=== PATIENT | female | born 1985 | race Two or more races ===

== ENCOUNTER → 2016-11-09 | Day surgery (SDC) | payer OTHER ==
[~2016-11-09] VITALS: Ht 172.7 cm; Wt 127.0 kg
[~2016-11-09] MED LIST: BUPIVACAINE HCL 0.25% 30 ML VIAL As Ordered ONE; DEPO150I IM; LISI20TA PO; LR 1,000 ML IV SCH; MEPERIDINE INJ 25 MG/ML VIAL (J2175) IV PRN; METOCLOPRAMIDE INJ 10MG/2ML VIAL (J2765) IV PRN; MIDAZOLAM INJ 2 MG/2 ML VIAL (J2250) As Ordered ONE; NAPR500T3 PO; ONDANSETRON 4MG/2ML VIAL (J2405) As Ordered ONE; ONDANSETRON 4MG/2ML VIAL (J2405) IV PRN; PERCOCET 5MG/325MG TAB PO PRN; PROAAER10 INH; PROMETHAZINE INJ 25 MG/ML VIAL (J2550) As Ordered ONE; PROMETHAZINE INJ 25 MG/ML VIAL (J2550) IV ONE; TYLE325T5 PO; fentaNYL 100 MCG/2 ML INJECTION (J3010) IV PRN; fentaNYL 250 MCG/5 ML INJECTION (J3010) As Ordered ONE
[2016-11-09 06:59] LABS: MEAN CORPUSCULAR HEMOGLOBIN 31.7 pg (27.0-33.0); MEAN CORPUSCULAR VOLUME 93.3 fl (80.0-96.0); RED CELL DISTRIBUTION WIDTH 12.9 % (11.5-14.5); WHITE BLOOD COUNT 7.6 K/mm3 (4.0-10.0)
[2016-11-09 07:10] LABS: CONTROL LINE HCG INT CTR LINE PRESENT
[2016-11-09 07:17] LABS: ANION GAP 6 MEQ/L (8-16); BLOOD UREA NITROGEN 15 MG/DL (7-18); CALCIUM LEVEL 8.9 MG/DL (8.5-10.1); CARBON DIOXIDE LEVEL 26 MEQ/L (21-32); CHLORIDE LEVEL 111 MEQ/L (98-107); CREATININE FOR GFR 0.78 MG/DL (0.55-1.02); GLOMERULAR FILTRATION RATE > 60.0 (>60); GLUCOSE, FASTING 108 MG/DL (70-105); POTASSIUM SERUM 4.4 MEQ/L (3.5-5.1); SODIUM LEVEL 143 MEQ/L (136-145)
[2016-11-09 13:00] VITALS: BP 119/78
== END | disposition home or self-care (01) ==
LOC: M SDC 06:28
PROVIDERS: ATTEND Obstetrics & Gynecology
DX: N93.9 Abnormal uterine and vaginal bleeding, unspecified (principal); R10.2 Pelvic and perineal pain; G89.29 Other chronic pain; I10 Essential (primary) hypertension; J45.909 Unspecified asthma, uncomplicated; T88.59XD Other complications of anesthesia, subsequent encounter; E04.9 Nontoxic goiter, unspecified; R29.898 Other symptoms and signs involving the musculoskeletal system; F17.210 Nicotine dependence, cigarettes, uncomplicated; Z91.09 Other allergy status, other than to drugs and biological substances; Z91.018 Allergy to other foods; Z79.899 Other long term (current) drug therapy; Z79.3 Long term (current) use of hormonal contraceptives; Z86.59 Personal history of other mental and behavioral disorders
CPT/HCPCS: 36415; 49320; 58558; 80048; 84703; 85027; 86850; 86900; 86901; 88305; J2250; J2405; J3010

== ENCOUNTER → 2016-12-22 | Outpatient (CLI) | payer OTHER ==
[~2016-12-22] MED LIST changes: -BUPIVACAINE HCL 0.25% 30 ML VIAL As Ordered ONE; -LR 1,000 ML IV SCH; -MEPERIDINE INJ 25 MG/ML VIAL (J2175) IV PRN; -METOCLOPRAMIDE INJ 10MG/2ML VIAL (J2765) IV PRN; -MIDAZOLAM INJ 2 MG/2 ML VIAL (J2250) As Ordered ONE; -ONDANSETRON 4MG/2ML VIAL (J2405) As Ordered ONE; -ONDANSETRON 4MG/2ML VIAL (J2405) IV PRN; -PERCOCET 5MG/325MG TAB PO PRN; -PROMETHAZINE INJ 25 MG/ML VIAL (J2550) As Ordered ONE; -PROMETHAZINE INJ 25 MG/ML VIAL (J2550) IV ONE; -fentaNYL 100 MCG/2 ML INJECTION (J3010) IV PRN; -fentaNYL 250 MCG/5 ML INJECTION (J3010) As Ordered ONE
--- NOTE | 2016-12-22 17:39 | REP ---
REASON: Back pain. COMPARISON: 06/10/2007. FINDINGS: Five views of the lumbosacral spine show no acute fracture, dislocation or subluxation. The intervertebral disc spaces are symmetric and well maintained. There is no spondylolysis or spondylolisthesis. The pedicles are intact bilaterally and there is no destructive osseous lesion. There are mild chronic changes seen involving the imaged portion of the lower thoracic spine but only on the lateral view as it was only on the lateral dose that those vertebral bodies were included in the exam. IMPRESSION: Unremarkable lumbosacral spine series. Signed by Aditya Atkins DO 12/22/2016 05:47 P
--- NOTE | 2016-12-22 17:48 | REP ---
REASON: Pain. COMPARISON: None. FINDINGS: No acute fracture or destructive osseous lesion. Signed by Aditya Atkins DO 12/22/2016 06:58 P
== END ==
LOC: M LRY 14:52
PROVIDERS: ATTEND Nurse Practitioner Family
DX: M54.42 Lumbago with sciatica, left side (principal)
CPT/HCPCS: 72110; 72220; 96372; G0463; J1885

== ENCOUNTER → 2016-12-22 | Outpatient (CLI) | payer OTHER | LOC: M LRY 15:07 | PROVIDERS: ATTEND Nurse Practitioner Family | DX: M54.42 Lumbago with sciatica, left side (principal) ==

== ENCOUNTER 2019-01-02 13:32 | Observation (INO) | payer OTHER ==
[~2019-01-02] VITALS: Ht 172.7 cm; Wt 133.0 kg
[2019-01-02] MEDS: NS 1,000 ML IV SCH ×2 (00:30→18:39)
[~2019-01-02 13:32] MED LIST changes: -LISI20TA PO; +LISI20TA18 PO; +NAPR-885 PO; -NAPR500T3 PO
[2019-01-02 14:19] LABS: BASO % 0.4 % (0.0-1.0); EOS # 0.1 10^3/uL (0.0-0.50); EOS % 1.1 % (0.0-3.0); HEMOGLOBIN 15.3 g/dl (12.0-15.5); LYMPH # 2.4 10^3/uL (1.5-4.5); LYMPH % 22.4 % (24.0-44.0); MEAN CORPUSCULAR HEMOGLOBIN 31.6 pg (27.0-33.0); MEAN CORPUSCULAR HGB CONC 34.8 g/dl (32.0-36.5); MEAN CORPUSCULAR VOLUME 90.9 fl (80.0-96.0); MONO # 0.5 10^3/uL (0.0-0.8); MONO % 4.2 % (0.0-5.0); NEUTROPHILS # 7.8 10^3/uL (1.8-7.7); NEUTROPHILS % 71.6 % (36.0-66.0); PLATELET COUNT, AUTOMATED 260 10^3/uL (150-450); RED BLOOD COUNT 4.84 10^6/uL (4.00-5.40); WHITE BLOOD COUNT 10.9 10^3/uL (4.0-10.0)
[2019-01-02 14:45] LABS: ALBUMIN 4.1 GM/DL (3.2-5.2); ALT/SGPT 35 U/L (12-78); BILIRUBIN,DIRECT 0.1 MG/DL (0.0-0.2); BILIRUBIN,TOTAL 0.5 MG/DL (0.2-1.0); BLOOD UREA NITROGEN 18 MG/DL (7-18); CALCIUM LEVEL 9.4 MG/DL (8.5-10.1); CARBON DIOXIDE LEVEL 27 MEQ/L (21-32); CHLORIDE LEVEL 107 MEQ/L (98-107); CREATININE FOR GFR 0.88 MG/DL (0.55-1.30); GLOMERULAR FILTRATION RATE > 60.0 (>60); GLUCOSE, FASTING 109 MG/DL (70-100); LIPASE 2150 U/L (73-393); SODIUM LEVEL 140 MEQ/L (136-145); TOTAL PROTEIN 7.7 GM/DL (6.4-8.2)
[2019-01-02 14:50] LABS: HCG, SERUM QUALITATIVE NEGATIVE (NEGATIVE)
[2019-01-02] MEDS ORDERED: ONDANSETRON 4MG/2ML VIAL (J2405) IV ONE (15:15)
[2019-01-02] MEDS ORDERED: MORPHINE 4 MG/ML 1ML VIAL/SYRINGE (J2270) IV ONE (15:15)
[2019-01-02] MEDS ORDERED: ISOVUE-370 76% 100ML VIAL (Q9967) As Ordered ONE (15:19)
[2019-01-02] MEDS ORDERED: NS 1,000 ML IV ONE (16:15)
[2019-01-02] MEDS ORDERED: IPRATROPIUM 0.5MG/ALBUTEROL 2.5MG INH SOL UD 3ML (DUONEB)(J7620) NEB PRN (17:15)
--- NOTE | 2019-01-02 17:35 | HPEPDOC ---
General Date of Admission 01/02/19 Date of Service: Jan 02, 2019 Chief Complaint The patient is a 33-year-old female admitted with a reason for visit of Abd Pain. History of Present Illness 33-year-old female with past medical history of hypertension, asthma, and morbid obesity presents to the ER with a chief complaint of abdominal pain. The patient states that her pain started yesterday evening. She describes it as epigastric in origin radiating to the sides in a belt-like distribution. She states that it was stabbing in quality, and 8 out of 10 in intensity. Of note, the patient endorses that she has been eating fried chicken daily for the last 3 weeks at work ([employer]). She denies any history of heavy alcohol use, new medications. She also notes a history of gallbladder removal 11 years ago due to recurrent pancreatitis. She states that she has been comfort eating as her grandmother was recently diagnosed with cancer. She denies any complaints of fevers, chills, chest pain, palpitations, or any vomiting/diarrhea. In the ER, the patient was noted to have an elevated lipase level. Liver function tests were noted to be within normal limits. A CT scan of the abdomen/pelvis is pending at this time. She will be admitted under observation status to the hospitalist service for further evaluation and management. Home Medications Scheduled Lisinopril/Hydrochlorothiazide (Lisinopril-Hctz 20-12.5 mg Tab) 1 Tab Tab, 1 TAB PO QAM, (Reported) Medroxyprogesterone Acetate (Depo-Provera) 150 Mg/Ml Inj, 150 MG IM Q3M, (Reported) Naproxen (Naproxen) 500 Mg Tab, 500 MG PO BID, (Reported) Scheduled PRN Acetaminophen (Tylenol) 325 Mg Tab, 325 MG PO QAM PRN for PAIN, (Reported) Albuterol Sulfate (Proair Hfa) 108 Mcg/Act Aer, 2 PUFF INH QID PRN for WHEEZING, (Reported) Allergies Coded Allergies: Cat Dander (Verified Allergy, Unknown, 01/02/19) banana (Verified Adverse Reaction, Intermediate, GI UPSET RAW, 01/02/19) Past Medical History Medical History As noted in HPI. Surgical History Laparoscopic bilateral ovarian cystectomies for dermoid cysts, laparoscopic cholecystectomy in 2007, open appendectomy at the age of 7 Social History * Smoker: current smoker (patient sees that she has smoked 1 pack per day of tobacco for the last 11 years.) Alcohol: occationally Drugs: denies Review of Systems Other systems 10 point review of systems negative unless otherwise specified in HPI. Physical Examination General Exam: Positive: Alert, Cooperative, No Acute Distress, Other (morbidly obese appearing) ENT Exam: Positive: Atraumatic, Mucous membr. moist/pink Neck Exam: Negative: JVD Chest Exam: Positive: Clear to auscultation, Normal air movement Heart Exam: Positive: Rate Normal, Normal S1, Normal S2 Abdomen Exam: Positive: Soft, Tenderness (mild tenderness to deep palpation in the epigastric/supraumbilical region extending in a belt-like distribution around the torso.) Extremity Exam: Negative: Tenderness, Swelling Neuro Exam: Positive: Normal Speech Psych Exam: Positive: Mental status NL, Mood NL, Oriented x 3 Vital Signs Vital Signs Date Time Temp Pulse Resp B/P (MAP) Pulse Ox O2 Delivery O2 Flow Rate FiO2 01/02/19 16:59 77 17 154/87 (109) 97 Room Air 01/02/19 13:32 98.1 Laboratory Data Labs 24H Laboratory Tests 2 01/02/19 14:04: Immature Granulocyte % (Auto) 0.3, White Blood Count 10.9H, Red Blood Count 4.84, Hemoglobin 15.3, Hematocrit 44.0, Mean Corpuscular Volume 90.9, Mean Corpuscular Hemoglobin 31.6, Mean Corpuscular Hemoglobin Concent 34.8, Red Cell Distribution Width 12.4, Platelet Count 260, Neutrophils (%) (Auto) 71.6H, Lymphocytes (%) (Auto) 22.4L, Monocytes (%) (Auto) 4.2, Eosinophils (%) (Auto) 1.1, Basophils (%) (Auto) 0.4, Neutrophils # (Auto) 7.8H, Lymphocytes # (Auto) 2.4, Monocytes # (Auto) 0.5, Eosinophils # (Auto) 0.1, Basophils # (Auto) 0.0, Nucleated Red Blood Cells % (auto) 0.0, Anion Gap 6L, Glomerular Filtration Rate > 60.0, Calcium Level 9.4, Aspartate Amino Transf (AST/SGOT) 18, Alanine Aminotransferase (ALT/SGPT) 35, Alkaline Phosphatase 68, Total Bilirubin 0.5, Direct Bilirubin 0.1, Total Protein 7.7, Albumin 4.1, Albumin/Globulin Ratio 1.14, Lipase 2150H, Human Chorionic Gonadotropin, Qual NEGATIVE 01/02/19 15:10: Urine Color YELLOW, Urine Appearance CLEAR, Urine pH 5.0, Urine Specific [place] 1.026, Urine Protein NEGATIVE, Urine Glucose (UA) NEGATIVE, Urine Ketones TRACEH, Urine Blood NEGATIVE, Urine Nitrite NEGATIVE, Urine Bilirubin NEGATIVE, Urine Urobilinogen 0.2, Urine Leukocyte Esterase NEGATIVE, Urine WBC (Auto) 2, Urine RBC (Auto) 4H, Urine Hyaline Casts (Auto) 0, Urine Bacteria (Auto) NEGATIVE, Urine Squamous Epithelial Cells 2, Urine Mucus (Auto) SMALL, Urine Sperm (Auto) CBC/BMP Laboratory Tests 01/02/19 14:04 Red Blood Count 4.84, Mean Corpuscular Volume 90.9, Mean Corpuscular Hemoglobin 31.6, Mean Corpuscular Hemoglobin Concent 34.8, Red Cell Distribution Width 12.4, Neutrophils (%) (Auto) 71.6 H, Lymphocytes (%) (Auto) 22.4 L, Monocytes (%) (Auto) 4.2, Eosinophils (%) (Auto) 1.1, Basophils (%) (Auto) 0.4, Neutrophil s # (Auto) 7.8 H, Lymphocytes # (Auto) 2.4, Monocytes # (Auto) 0.5, Eosinophils # (Auto) 0.1, Basophils # (Auto) 0.0 Plan / VTE VTE Prophylaxis Ordered?: Yes Plan Plan Pancreatitis 2/[address] Abd/Pel pending, RUQ U/S ordered for the AM We will keep the patient NPO IVF Hydration ordered Analgesic therapy ordered Lipid panel ordered Patient counseled at length regarding dietary discretion, and avoidance of high fat/high cholesterol diet. We will continue to monitor the patient on MedSurg History of hypertension We will resume the patient's by mouth medications in the a.m. Remote history of asthma Albuterol when necessary ordered Morbid obesity Complicating medical care DVT prophylaxis Lovenox subcutaneous KENAN GUERRERO MD Jan 02, 2019 17:35
[2019-01-02] MEDS ORDERED: ZEST1TAB2 PO (17:49)
[2019-01-02] MEDS ORDERED: MIDOTAB PO (17:51)
--- NOTE | 2019-01-02 17:56 | REP ---
HISTORY: Abdominal pain. COMPARISON: None. CONTRAST: 100 mL [id number]. There is abnormal fatty infiltration in the left anterior pararenal space. There is thickening of the left lateroconal fascia. There is mild thickening of Zuckerkandl's fascia on the left. There is no free air in the abdomen. The liver, spleen, adrenal glands and kidneys are within normal limits. The abdominal aorta and paraaortic regions are within normal limits. The bowel loops are within normal limits. There is mild fatty infiltration adjacent to the posterior wall of the descending colon secondary to the inflammatory process arising from the pancreas. There is no intestinal obstruction. CT PELVIS: There is a small amount of free pelvic fluid. There is no free air. The bowel loops are unremarkable. There is no evidence of a pelvic mass or adenopathy. Bone window technique throughout the exam shows the osseous structures to be within normal limits. The lung bases are clear with the exception of minimal subsegmental atelectatic changes seen bilaterally. IMPRESSION: Pancreatitis and related findings as described above. Electronically Signed by Aditya Atkins DO 01/03/2019 12:36 P
--- NOTE | 2019-01-02 18:31 | REPVR ---
EXAM: US Abdomen Limited, Right Upper Quadrant EXAM DATE/TIME: 01/02/2019 6:08 PM CLINICAL HISTORY: 33 years old, female; Abdominal pain; Acute; Prior surgery; Surgery date: 6+ months; Surgery type: Cholecystectomy; Additional info: Pancreatitis, evaluate for retained stone vs gravel in ducts TECHNIQUE: Imaging protocol: Real-time ultrasound of the abdomen with image documentation. Examination was focused on the right upper quadrant. COMPARISON: CT ABD/PEL W/IV CONTRAST ONLY 01/02/2019 4:20 PM FINDINGS: Liver: The liver is diffusely echogenic relative to the right kidney, findings consistent with steatosis. Gallbladder: There has been a cholecystectomy. Common bile duct: The common bile duct measures 6.5 mm. No mass or choledocholithiasis in the visualized segments of the common bile duct. The distal common bile duct is obscured by overlying bowel gas. Pancreas: Pancreas substantially obscured by overlying bowel gas. Right kidney: Right kidney measures 12.5 x 6.1 x 5.3 cm. IMPRESSION: 1. There has been a cholecystectomy. Normal evaluation of the visualized biliary tree. 2. Hepatic steatosis. Electronically signed by: Danilo Daniels On 01/02/2019 18:30:59 PM
[2019-01-02 19:00] VITALS: BP 158/98
[2019-01-02 19:00] LABS: CHOLESTEROL RISK RATIO 4.794 (<5)
[2019-01-02] MEDS: LISINOPRIL 20 MG TAB PO SCH (20:01)
[2019-01-02] MEDS: MORPHINE 4 MG/ML 1ML VIAL/SYRINGE (J2270) IV PRN (20:14)
[2019-01-03] VITALS: BP 137/80
[2019-01-03] MEDS: NS 1,000 ML IV SCH ×6 (00:30→23:15)
[2019-01-03] MEDS ORDERED: ONDANSETRON 4MG/2ML VIAL (J2405) IV PRN (01:15)
[2019-01-03] MEDS: MORPHINE 4 MG/ML 1ML VIAL/SYRINGE (J2270) IV PRN ×2 (04:38→10:48)
[2019-01-03 06:03] LABS: HEMATOCRIT 38.9 % (36.0-47.0); MEAN CORPUSCULAR HEMOGLOBIN 30.9 pg (27.0-33.0); MEAN CORPUSCULAR HGB CONC 33.2 g/dl (32.0-36.5); MEAN CORPUSCULAR VOLUME 93.1 fl (80.0-96.0); PLATELET COUNT, AUTOMATED 201 10^3/uL (150-450); RED BLOOD COUNT 4.18 10^6/uL (4.00-5.40); WHITE BLOOD COUNT 8.4 10^3/uL (4.0-10.0)
[2019-01-03 06:13] LABS: HEMOGLOBIN 12.9 g/dl (12.0-15.5)
[2019-01-03 06:43] LABS: ALBUMIN 3.4 GM/DL (3.2-5.2); ALT/SGPT 30 U/L (12-78); BILIRUBIN,TOTAL 0.7 MG/DL (0.2-1.0); BLOOD UREA NITROGEN 14 MG/DL (7-18); CALCIUM LEVEL 8.4 MG/DL (8.5-10.1); CARBON DIOXIDE LEVEL 30 MEQ/L (21-32); CHLORIDE LEVEL 107 MEQ/L (98-107); CREATININE FOR GFR 0.76 MG/DL (0.55-1.30); GLOMERULAR FILTRATION RATE > 60.0 (>60); GLUCOSE, FASTING 104 MG/DL (70-100); LIPASE 1233 U/L (73-393); MAGNESIUM LEVEL 2.1 MG/DL (1.8-2.4); POTASSIUM SERUM 4.2 MEQ/L (3.5-5.1); SODIUM LEVEL 141 MEQ/L (136-145); TOTAL PROTEIN 6.5 GM/DL (6.4-8.2)
[2019-01-03 08:00] VITALS: BP 156/85
[2019-01-03] MEDS: ENOXAPARIN 40 MG/0.4 ML SYRINGE (J1650) SC SCH (08:52)
--- NOTE | 2019-01-03 09:54 | IPNPDOC ---
Date Seen The patient was seen on 01/03/19. Progress Note SUBJECTIVE: Patient is a 33-year-old female who presented with epigastric abdominal pain radiating around to her back and nausea. Patient was seen and examined in her room, lying comfortably on the bed. She states she is feeling some improvements from yesterday with no sharp abdominal pain at rest but still some discomfort in the epigastric area. She states she does still feel him nausea sometimes, but has not felt like vomiting and does feel like she could start something today. She would like to try drinking some water. She denies any fevers, chills, chest pain, palpitations, shortness of breath, cough, vomiting, diarrhea. OBJECTIVE PHYSICAL EXAMINATION: VITAL SIGNS: Please see below. GENERAL: Alert, comfortable, in no acute distress, morbidly obese HEENT: Moist mucous membranes CARDIOVASCULAR: Regular rate and rhythm, normal S1, S2, no murmurs appreciated RESPIRATORY: Auscultation bilaterally with equal air entry bilaterally, no wheezing. ABDOMINAL:, Soft, nondistended, mild tenderness in the epigastric area to deep palpation, bowel sounds present. EXTREMITIES: No edema, pulses 2+/4 in the radial and dorsalis pedis arteries NEUROLOGICAL: Alert and oriented 3 to person, place, and time, No focal deficits appreciated. PSYCHOLOGICAL: Normal mood and affect LABORATORY DATA, IMAGING STUDIES, MICROBIOLOGY: Please see below. ASSESSMENT AND PLAN: This is a 33-year-old female who presented with epigastric abdominal pain radiating around to her back, elevated lipase level, and CT findings consistent with pancreatitis, admitted for treatment of acute pancreatitis. PROBLEMS: 1. Acute pancreatitis Triglyceride levels normal, no recent excessive alcohol intake, right upper quadrant ultrasound negative for retained gallstone s/p cholecystectomy This episode of pancreatitis may be related to dietary indiscretion as the patient admits she's been eating a lot of fried and fatty foods lately. Will advance patient's diet this morning to clear liquids to see if she t olerates this. Continue with IV fluid hydration until she has adequate oral intake. Continue to monitor for improvement and will advance her diet slowly as she tolerates it. 2. Hypertension Blood pressure stable, currently holding home medications to provide adequate IV fluid hydration for treatment of pancreatitis. Plan to restart home medications when she is off IV fluids 3. Asthma. Stable, only uses rescue inhaler as needed at home. Will provide DuoNeb as needed while inpatient. 4. Obesity BMI 44.6, morbidly obese. Complicates care 5. DVT prophylaxis. Lovenox DISPOSITION: Inpatient MedSurg pending clinical improvement VS, I&O, 24H, [place] Vital Signs/I&O Vital Signs Date Time Temp Pulse Resp B/P (MAP) Pulse Ox O2 Delivery O2 Flow Rate FiO2 01/03/19 08:00 97.7 83 18 156/85 (108) 97 01/02/19 18:45 Room Air I&O- Last 24 Hours up to 6 AM 01/03/19 06:00 Intake Total 3400 ml Balance 3400 ml Laboratory Data 24H LABS Laboratory Tests 2 01/02/19 14:04: Immature Granulocyte % (Auto) 0.3, White Blood Count 10.9H, Red Blood Count 4.84, Hemoglobin 15.3, Hematocrit 44.0, Mean Corpuscular Volume 90.9, Mean Corpuscular Hemoglobin 31.6, Mean Corpuscular Hemoglobin Concent 34.8, Red Cell Distribution Width 12.4, Platelet Count 260, Neutrophils (%) (Auto) 71.6H, Lymphocytes (%) (Auto) 22.4L, Monocytes (%) (Auto) 4.2, Eosinophils (%) (Auto) 1.1, Basophils (%) (Auto) 0.4, Neutrophils # (Auto) 7.8H, Lymphocytes # (Auto) 2.4, Monocytes # (Auto) 0.5, Eosinophils # (Auto) 0.1, Basophils # (Auto) 0.0, Nucleated Red Blood Cells % (auto) 0.0, Anion Gap 6L, Glomerular Filtration Rate > 60.0, Calcium Level 9.4, Aspartate Amino Transf (AST/SGOT) 18, Alanine Aminotransferase (ALT/SGPT) 35, Alkaline Phosphatase 68, Total Bilirubin 0.5, Direct Bilirubin 0.1, Total Protein 7.7, Albumin 4.1, Albumin/Globulin Ratio 1.14, Lipase 2150H, Human Chorionic Gonadotropin, Qual NEGATIVE 01/02/19 15:10: Urine Color YELLOW, Urine Appearance CLEAR, Urine pH 5.0, Urine Specific [place] 1.026, Urine Protein NEGATIVE, Urine Glucose (UA) NEGATIVE, Urine Ketones TRACEH, Urine Blood NEGATIVE, Urine Nitrite NEGATIVE, Urine Bilirubin NEGATIVE, Urine Urobilinogen 0.2, Urine Leukocyte Esterase NEGATIVE, Urine WBC (Auto) 2, Urine RBC (Auto) 4H, Urine Hyaline Casts (Auto) 0, Urine Bacteria (Auto) NEGATIVE, Urine Squamous Epithelial Cells 2, Urine Mucus (Auto) SMALL, Urine Sperm (Auto) 01/02/19 18:24: Triglycerides Level 147, LDL Cholesterol 119H, Total Cholesterol 187, Non-HDL Cholesterol (LDL + VLDL) 148, Total HDL Cholesterol 39L, Cholesterol/HDL Ratio 4.794 01/03/19 05:36: Nucleated Red Blood Cells % (auto) 0.0, Anion Gap 4L, Glomerular Filtration Rate > 60.0, Calcium Level 8.4L, Aspartate Amino Transf (AST/SGOT) 13, Alanine Aminotransferase (ALT/SGPT) 30, Alkaline Phosphatase 61, Total Bilirubin 0.7, Total Protein 6.5, Albumin 3.4, Albumin/Globulin Ratio 1.10, Lipase 1233H, Blood Urea Nitrogen 14, Creatinine 0.76, Sodium Level 141, Potassium Level 4.2, Ch loride Level 107, Carbon Dioxide Level 30, Magnesium Level 2.1 CBC/BMP Laboratory Tests 01/02/19 14:04 Red Blood Count 4.84, Mean Corpuscular Volume 90.9, Mean Corpuscular Hemoglobin 31.6, Mean Corpuscular Hemoglobin Concent 34.8, Red Cell Distribution Width 12.4, Neutrophils (%) (Auto) 71.6 H, Lymphocytes (%) (Auto) 22.4 L, Monocytes (%) (Auto) 4.2, Eosinophils (%) (Auto) 1.1, Basophils (%) (Auto) 0.4, Neutrophils # (Auto) 7.8 H, Lymphocytes # (Auto) 2.4, Monocytes # (Auto) 0.5, Eosinophils # (Auto) 0.1, Basophils # (Auto) 0.0 01/03/19 05:36 Red Blood Count 4.18, Mean Corpuscular Volume 93.1, Mean Corpuscular Hemoglobin 30.9, Mean Corpuscular Hemoglobin Concent 33.2, Red Cell Distribution Width 12.5, Calcium Level 8.4 L, Aspartate Amino Transf (AST/SGOT) 13, Alanine Aminotransferase (ALT/SGPT) 30, Alkaline Phosphatase 61, Total Bilirubin 0.7, Total Protein 6.5, Albumin 3.4 KEN RAND PGY-1 Jan 03, 2019 09:54
[2019-01-03 16:00] VITALS: BP 166/96
[2019-01-03] MEDS ORDERED: NORCO, ANEXSIA 5/325MG TABLET (HYDROcodone/ACETAMINOPHEN) PO PRN ×2 (16:45)
[2019-01-03] MEDS: ACETAMINOPHEN TAB 650MG DOSE (2X325MG) PO PRN ×2 (16:59→21:51)
[2019-01-03 20:24] VITALS: BP 166/96
[2019-01-03] MEDS: LISINOPRIL 20 MG TAB PO SCH (20:24)
[2019-01-04] VITALS: BP 148/82
[2019-01-04] MEDS: ACETAMINOPHEN TAB 650MG DOSE (2X325MG) PO PRN ×2 (03:34→10:01)
[2019-01-04] MEDS: NS 1,000 ML IV SCH (04:15)
[2019-01-04 07:52] LABS: HEMATOCRIT 37.1 % (36.0-47.0); HEMOGLOBIN 12.6 g/dl (12.0-15.5); MEAN CORPUSCULAR HEMOGLOBIN 30.8 pg (27.0-33.0); MEAN CORPUSCULAR VOLUME 90.7 fl (80.0-96.0); PLATELET COUNT, AUTOMATED 208 10^3/uL (150-450); RED BLOOD COUNT 4.09 10^6/uL (4.00-5.40); WHITE BLOOD COUNT 8.6 10^3/uL (4.0-10.0)
[2019-01-04 08:00] VITALS: BP 163/93
[2019-01-04 08:18] LABS: BLOOD UREA NITROGEN 7 MG/DL (7-18); CALCIUM LEVEL 8.7 MG/DL (8.5-10.1); CARBON DIOXIDE LEVEL 26 MEQ/L (21-32); CHLORIDE LEVEL 106 MEQ/L (98-107); GLOMERULAR FILTRATION RATE > 60.0 (>60); GLUCOSE, FASTING 102 MG/DL (70-100); POTASSIUM SERUM 3.6 MEQ/L (3.5-5.1); SODIUM LEVEL 140 MEQ/L (136-145)
[2019-01-04] MEDS: ENOXAPARIN 40 MG/0.4 ML SYRINGE (J1650) SC SCH (10:00)
--- NOTE | 2019-01-04 13:09 | DS.PDOC ---
Discharge Summary General Date of Admission Jan 02, 2019 at 17:05 Date of Discharge 01/04/2019 Attending Physician: KENAN GUERRERO MD Discharge Summary PROCEDURES PERFORMED DURING STAY: None. ADMITTING DIAGNOSES: 1. Acute pancreatitis. 2. Hypertension. 3. History of asthma. 4. Morbid obesity DISCHARGE DIAGNOSES: 1. Acute pancreatitis. 2. Hypertension. 3. History of asthma. 4. Morbid obesity COMPLICATIONS/CHIEF COMPLAINT: Pancreatitis. HISTORY OF PRESENT ILLNESS: 33-year-old female who presented to the ER with 1 day history of epigastric abdominal pain which radiated around to both sides. She described her pain as 8 out of 10 stabbing. She does endorse some nausea, but has been able to keep down food. She has a history of cholecystectomy 11 years ago due to recurrent pancreatitis. She states that she has been eating an unhealthy diet with a lot of fried and high fat foods lately due to increased life stressors. Patient denied any excessive alcohol intake lately, stating her last alcoholic beverage was a few days before her symptoms started and consisted of 1 alcoholic seltzer drink. She denies any fevers, chills, chest pain, palpitations, vomiting, diarrhea. HOSPITAL COURSE: Patient was evaluated in the emergency room and found to have pancreatitis with epigastric abdominal pain, elevated lipase level, and CT findings suggestive of pancreatitis. Patient was admitted to the hospital and started on IV fluids for hydration. A liver ultrasound was obtained to evaluate for a retained gallstone, which was negative, but did show hepatic steatosis. Liver function tests were normal during her admission. Cholesterol levels were also evaluated as a potential cause for her pancreatitis, but these were normal including triglyceride levels. She was kept nothing by mouth on the first night of her admission. On the second day of her admission. She did start to develop an appetite and was progressed on to clear liquids diet. When she had good oral intake, IV fluids were stopped. Her diet was further progressed to a soft diet. Her abdominal pain did improve and she denied any persistent nausea. On the second day of her admission, she tolerated breakfast well without worsening abdominal pain, nausea, vomiting, or diarrhea. On the day of discharge, the patient was found to be stable and safe for discharge home. DISCHARGE MEDICATIONS: Please see below. ALLERGIES: Please see below. PHYSICAL EXAMINATION ON DISCHARGE: VITAL SIGNS: Please see below. GENERAL: Alert, comfortable, in no acute distress, morbidly obese HEENT: Moist mucous membranes CARDIOVASCULAR EXAMINATION: Regular rate and rhythm, normal S1, S2, no murmurs appreciated RESPIRATORY EXAMINATION: Clear to auscultation bilaterally with equal air entry, no wheezing ABDOMINAL EXAMINATION:, Soft, nondistended, mildly tender in the epigastric area to deep palpation, bowel sounds present EXTREMITIES: No edema, pulses 2+/4 in the radial and dorsalis pedis arteries SKIN: Intact, warm, pink, dry NEUROLOGICAL EXAMINATION: Alert and oriented 3 to person, place, and time, No focal deficits appreciated. PSYCHIATRIC EXAMINATION: Mood and affect normal LABORATORY DATA: Please see below. IMAGING: CT abdomen/pelvis 01/02: Pancreatitis and related findings described in full report Liver U/S 01/02: 1.There has been a cholecystectomy. Normal evaluation of the visualized biliary tree. 2. Hepatic steatosis. PROGNOSIS: Good ACTIVITY: As tolerated. DIET: As tolerated, suggests low fat diet DISCHARGE PLAN: Home DISPOSITION: 01 Home, Self-Care. DISCHARGE INSTRUCTIONS: 1. Follow up with your PCP in 7-10 days 2. Continue to take your regular home medications 3. Try to avoid a diet high in fatty and processed foods. 4. If your symptoms return or you condition worsens, call your PCP or return to the ER for further evaluation ITEMS TO FOLLOWUP ON ON OUTPATIENT: 1. Acute pancreatitis. 2. Hepatic steatosis seen on liver ultrasound, with normal liver function tests. DISCHARGE CONDITION: Stable TIME SPENT ON DISCHARGE: Greater than 35 minutes. Vital Signs/I&Os Vital Signs Date Time Temp Pulse Resp B/P (MAP) Pulse Ox O2 Delivery O2 Flow Rate FiO2 01/04/19 08:00 98.4 85 18 163/93 (116) 96 01/02/19 18:45 Room Air I&O- Last 24 Hours up to 6 AM 01/04/19 06:00 Intake Total 4870 ml Output Total 2150 ml Balance 2720 ml Laboratory Data Labs 24H Laboratory Tests 2 01/04/19 07:07: Nucleated Red Blood Cells % (auto) 0.0, Anion Gap 8, Glomerular Filtration Rate > 60.0, Blood Urea Nitrogen 7, Creatinine 0.60, Sodium Level 140, Potassium Level 3.6, Chloride Level 106, Carbon Dioxide Level 26, Calcium Level 8.7 CBC/BMP Laboratory Tests 01/04/19 07:07 Red Blood Count 4.09, Mean Corpuscular Volume 90.7, Mean Corpuscular Hemoglobin 30.8, Mean Corpuscular Hemoglobin Concent 34.0, Red Cell Distribution Width 12.1, Calcium Level 8.7 Discharge Medications Scheduled Lisinopril/Hydrochlorothiazide (Zestoretic 20-12.5 mg Tablet) 1 Each Tablet, 2 TAB PO QAM, (Reported) Medroxyprogesterone Acetate (Depo-Provera) 150 Mg/Ml Inj, 150 MG IM Q3M, (Reported) LAST INJECTION WAS 4 MONTHS AGO Scheduled PRN Acetaminophen/Pyrilamine/Caff (Midol [place]) 1 Each Tablet, 2 EACH PO Q6H PRN for CRAMPS, (Reported) WAS TAKING FOR MENSTRUL CYCLE WHICH ENDED 12/31 Albuterol Sulfate (Proair Hfa) 108 Mcg/Act Aer, 2 PUFF INH QID PRN for WHEEZING, (Reported) Allergies Coded Allergies: Cat Dander (Verified Allergy, Unknown, 01/02/19) banana (Verified Adverse Reaction, Intermediate, GI UPSET RAW, 01/02/19) KEN RAND PGY-1 Jan 04, 2019 13:09
== END 2019-01-04 11:58 | disposition home or self-care (01) ==
LOC: M ED 13:32 → M ED INP 17:05 → M PED 18:55
PROVIDERS: ADMIT Internal Medicine; ATTEND Internal Medicine
DX: K85.90 Acute pancreatitis without necrosis or infection, unspecified (principal); I10 Essential (primary) hypertension; J45.909 Unspecified asthma, uncomplicated; E66.01 Morbid (severe) obesity due to excess calories; K76.0 Fatty (change of) liver, not elsewhere classified; Z90.49 Acquired absence of other specified parts of digestive tract; F17.210 Nicotine dependence, cigarettes, uncomplicated; Z79.899 Other long term (current) drug therapy; Z79.3 Long term (current) use of hormonal contraceptives; Z91.018 Allergy to other foods
CPT/HCPCS: 36415; 74177; 76705; 80048; 80053; 80061; 80076; 81001; 81002; 81025; 83690; 83735; 84703; 85025; 85027; 96361; 96372; 96374; 96375; 96376; 99284; G0463; J1650; J2270; J2405; Q9967

== ENCOUNTER → 2019-07-02 | Outpatient (CLI) | payer OTHER ==
[~2019-07-02] MED LIST changes: -LISI20TA18 PO; +LISI20TA19 PO; +MIDOTAB PO; +ZEST1TAB2 PO
--- NOTE | 2019-07-02 14:17 | REP ---
Acute abdominal series: Five views. History: Nausea vomiting. Intractable vomiting. Findings: Upright chest radiograph is normal. There is no evidence of infiltrate or free subdiaphragmatic air. Heart is not enlarged. Supine and erect views of the abdomen show clips in the right upper quadrant consistent with previous cholecystectomy. The bowel gas pattern is normal. There is air and stool in a nondistended colon. Psoas margins and flank stripes are intact. No mass, organomegaly, or pathologic calcification is seen. Impression: Negative acute abdominal series. Clips in the right upper quadrant consistent with previous cholecystectomy. Electronically Signed by Raul Peralta MD 07/02/2019 02:09 P
== END ==
LOC: M LRY 13:06
PROVIDERS: ATTEND Nurse Practitioner Family
DX: R11.2 Nausea with vomiting, unspecified (principal)
CPT/HCPCS: 74021; 81002; 81025; 87086; 87804; 87880; G0463

== ENCOUNTER → 2019-07-02 | Outpatient (REF) | payer OTHER | LOC: M SFHCLERA 13:05 | PROVIDERS: ATTEND Nurse Practitioner Family | DX: J10.1 Influenza due to other identified influenza virus with other respiratory manifestations (principal) ==

== ENCOUNTER 2022-03-31 12:02 | Emergency (ER) | payer OTHER ==
[~2022-03-31] VITALS: Ht 172.7 cm; Wt 81.4 kg
[~2022-03-31 12:02] MED LIST changes: -LISI20TA19 PO; +LISI20TA35 PO
[2022-03-31 12:42] LABS: BASO % 0.5 % (0.0-1.0); EOS # 0.1 10^3/uL (0.0-0.5); HEMATOCRIT 44.6 % (36.0-47.0); HEMOGLOBIN 14.8 g/dl (12.0-15.5); LYMPH # 2.1 10^3/uL (1.5-5.0); LYMPH % 33.5 % (24.0-44.0); MEAN CORPUSCULAR HEMOGLOBIN 31.4 pg (27.0-33.0); MEAN CORPUSCULAR HGB CONC 33.2 g/dl (32.0-36.5); MEAN CORPUSCULAR VOLUME 94.7 fl (80.0-96.0); MONO # 0.5 10^3/uL (0.0-0.8); MONO % 7.6 % (2.0-8.0); NEUTROPHILS # 3.5 10^3/uL (1.5-8.5); NEUTROPHILS % 56.9 % (36.0-66.0); PLATELET COUNT, AUTOMATED 182 10^3/uL (150-450); RED BLOOD COUNT 4.71 10^6/uL (4.00-5.40); WHITE BLOOD COUNT 6.2 10^3/uL (4.0-10.0)
[2022-03-31 13:12] LABS: ALBUMIN 4.3 G/DL (3.2-5.2); BILIRUBIN,DIRECT 0.2 MG/DL (<0.4); BILIRUBIN,TOTAL 0.5 MG/DL (0.3-1.2); TOTAL PROTEIN 6.8 G/DL (5.7-8.2)
[2022-03-31] MEDS ORDERED: NS 1,000 ML IV ONE (13:15)
[2022-03-31] MEDS ORDERED: KETOROLAC 30 MG/ML 1ML VIAL IV ONE (13:15)
[2022-03-31 14:37] VITALS: BP 120/80
== END 2022-03-31 14:40 | disposition home or self-care (01) ==
LOC: M ED 12:02
DX: N83.291 Other ovarian cyst, right side (principal); N20.0 Calculus of kidney; N21.0 Calculus in bladder; K21.9 Gastro-esophageal reflux disease without esophagitis; J45.909 Unspecified asthma, uncomplicated; I10 Essential (primary) hypertension; G43.909 Migraine, unspecified, not intractable, without status migrainosus; F17.200 Nicotine dependence, unspecified, uncomplicated; Z87.42 Personal history of other diseases of the female genital tract; Z91.018 Allergy to other foods; Z79.51 Long term (current) use of inhaled steroids; Z79.811 Long term (current) use of aromatase inhibitors; Z79.899 Other long term (current) drug therapy
CPT/HCPCS: 74176; 80047; 80076; 81000; 81015; 83690; 84702; 85025; 87086; 96361; 96374; 99284; J1885

== ENCOUNTER → 2022-05-25 | Outpatient (CLI) | payer OTHER ==
[2022-05-25 11:35] LABS: HEMATOCRIT 44.4 % (36.0-47.0); HEMOGLOBIN 14.9 g/dl (12.0-15.5); MEAN CORPUSCULAR HEMOGLOBIN 31.7 pg (27.0-33.0); MEAN CORPUSCULAR HGB CONC 33.6 g/dl (32.0-36.5); MEAN CORPUSCULAR VOLUME 94.5 fl (80.0-96.0); PLATELET COUNT, AUTOMATED 182 10^3/uL (150-450); WHITE BLOOD COUNT 5.6 10^3/uL (4.0-10.0)
[2022-05-25 12:06] LABS: BLOOD UREA NITROGEN 19 MG/DL (9-23); CARBON DIOXIDE LEVEL 27 MMOL/L (20-31); CHLORIDE LEVEL 107 MMOL/L (98-107); CREATININE FOR GFR 0.69 MG/DL (0.55-1.30); GLOMERULAR FILTRATION RATE > 60.0 (>60); GLUCOSE, FASTING 82 MG/DL (60-100); POTASSIUM SERUM 4.4 MMOL/L (3.5-5.1); SODIUM LEVEL 141 MMOL/L (136-145)
== END ==
LOC: M LAB 11:08
PROVIDERS: ATTEND Plastic Surgery Surgery of the Hand
DX: M54.07 Panniculitis affecting regions of neck and back, lumbosacral region (principal); L90.5 Scar conditions and fibrosis of skin

== ENCOUNTER → 2023-05-26 | Outpatient (REF) | payer OTHER ==
[2023-05-26 17:59] LABS: THYROID STIMULATING HORMONE 1.844 uIU/ML (0.55-4.78)
[2023-05-26 18:00] LABS: FOLLICLE STIMULATING HORMONE 11.7 mIU/ML; LUTEINIZING HORMONE 7.2 mIU/ML
[2023-05-27 07:42] LABS: FREE T4 1.1 NG/DL (0.89-1.76)
== END ==
LOC: M LAB REF 16:21
PROVIDERS: ATTEND Obstetrics & Gynecology
DX: N92.1 Excessive and frequent menstruation with irregular cycle (principal)

== ENCOUNTER → 2023-06-03 | Outpatient (CLI) | payer OTHER | LOC: M WHC 15:03 | PROVIDERS: ATTEND Obstetrics & Gynecology | DX: N92.1 Excessive and frequent menstruation with irregular cycle (principal); N83.201 Unspecified ovarian cyst, right side; N83.202 Unspecified ovarian cyst, left side ==

== ENCOUNTER 2023-06-26 18:08 | Emergency (ER) | payer OTHER ==
[~2023-06-26] VITALS: Ht 172.7 cm; Wt 92.0 kg
[2023-06-26] MEDS ORDERED: METR-265 PO (18:55)
[2023-06-26] MEDS ORDERED: DOXY-444 PO (18:55)
[2023-06-26] MEDS ORDERED: metroNIDAZOLE (FLAGYL) 500MG TABLET PO ONE (19:00)
[2023-06-26] MEDS ORDERED: DOXYCYCLINE HYCLATE 100MG TABLET PO ONE (19:00)
[2023-06-26] MEDS: diphenhydrAMINE 50MG/ML VIAL IV ONE (19:49)
[2023-06-26] MEDS: dexAMETHasone 20MG/5ML VIAL IV ONE (19:49)
[2023-06-26] MEDS: NS 1,000 ML IV ONE (19:49)
[2023-06-26] MEDS: METOCLOPRAMIDE INJ 10MG/2ML VIAL IV ONE (19:49)
[2023-06-26 19:58] LABS: BASO % 0.6 % (0.0-1.0); EOS # 0.1 10^3/uL (0.0-0.5); EOS % 1.7 % (0.0-3.0); HEMATOCRIT 42.5 % (36.0-47.0); HEMOGLOBIN 14.5 g/dl (12.0-15.5); LYMPH # 2.5 10^3/uL (1.5-5.0); LYMPH % 38.7 % (24.0-44.0); MEAN CORPUSCULAR HEMOGLOBIN 31.5 pg (27.0-33.0); MEAN CORPUSCULAR HGB CONC 34.1 g/dl (32.0-36.5); MEAN CORPUSCULAR VOLUME 92.4 fl (80.0-96.0); MONO # 0.5 10^3/uL (0.0-0.8); MONO % 7.7 % (2.0-8.0); NEUTROPHILS # 3.2 10^3/uL (1.5-8.5); NEUTROPHILS % 51.1 % (36.0-66.0); WHITE BLOOD COUNT 6.3 10^3/uL (4.0-10.0)
[2023-06-26 20:08] LABS: ERYTHROCYTE SEDIMENTATION RATE 7 mm/hr (0-20)
[2023-06-26 20:20] LABS: CK-MB VALUE MASS < 1.0 NG/ML (<3.6)
[2023-06-26 20:21] LABS: C REACTIVE PROTEIN QUANTITATIV < 0.40 MG/DL (<1.0)
[2023-06-26 20:22] LABS: BLOOD UREA NITROGEN 21 MG/DL (9-23); CARBON DIOXIDE LEVEL 30 MMOL/L (20-31); CHLORIDE LEVEL 106 MMOL/L (98-107); CREATININE FOR GFR 0.64 MG/DL (0.55-1.30); GLOMERULAR FILTRATION RATE > 60.0 (>58); GLUCOSE, FASTING 79 MG/DL (60-100); POTASSIUM SERUM 4.4 MMOL/L (3.5-5.1); SODIUM LEVEL 141 MMOL/L (136-145)
[2023-06-26 20:25] LABS: CPK CREATINE PHOSPHOKINASE 59 U/L (34-145); MB/CK RELATIVE INDEX 1.69 (< OR =4); PLATELET COUNT, AUTOMATED 214 10^3/uL (150-450)
[2023-06-26] MEDS ORDERED: MAGN400T2 PO (22:08)
[2023-06-26 22:19] VITALS: BP 161/92; TEMP 96.5; O2SAT 98
[2023-06-26 22:25] LABS: MAGNESIUM LEVEL 2.1 MG/DL (1.8-2.4)
[2023-06-26] MEDS: MAGNESIUM OXIDE 400MG TAB (MAG-OX) PO ONE (22:27)
== END 2023-06-26 22:29 | disposition home or self-care (01) ==
LOC: M ED 18:08
DX: R55 Syncope and collapse (principal); R51.9 Headache, unspecified; I10 Essential (primary) hypertension; J45.909 Unspecified asthma, uncomplicated; Z98.84 Bariatric surgery status; Z91.018 Allergy to other foods; Z91.048 Other nonmedicinal substance allergy status; Z79.52 Long term (current) use of systemic steroids; Z79.811 Long term (current) use of aromatase inhibitors; Z79.899 Other long term (current) drug therapy
CPT/HCPCS: 70450; 71045; 80048; 81001; 82550; 82553; 83735; 84484; 85025; 85652; 86140; 93005; 96361; 96374; 99284; J1100; J1200; J2765

== ENCOUNTER 2023-07-27 09:49 | Day surgery (SDC) | payer OTHER ==
[~2023-07-27] VITALS: Ht 172.7 cm; Wt 91.6 kg
[~2023-07-27 09:49] MED LIST changes: +CYAN-11 PO; +D400400C PO; +DOXY-444 PO; +HAIR1CHW2 PO; +IRON65TA2 PO; +MAGN400T2 PO; +METR-265 PO; +PERC5TAB12 PO; +RA M500C PO; +THERTAB52 PO; +ZINC50TA4 PO
[2023-07-27] MEDS ORDERED: LIDOCAINE 1% SDV 5ML VIAL SC PRN (10:30)
[2023-07-27 10:36] LABS: HEMOGLOBIN 14.1 g/dl (12.0-15.5); MEAN CORPUSCULAR HEMOGLOBIN 31.1 pg (27.0-33.0); MEAN CORPUSCULAR HGB CONC 33.6 g/dl (32.0-36.5); MEAN CORPUSCULAR VOLUME 92.7 fl (80.0-96.0); PLATELET COUNT, AUTOMATED 222 10^3/uL (150-450); RED BLOOD COUNT 4.53 10^6/uL (4.00-5.40); WHITE BLOOD COUNT 6.5 10^3/uL (4.0-10.0)
[2023-07-27 11:00] LABS: BLOOD UREA NITROGEN 14 MG/DL (9-23); CALCIUM LEVEL 8.6 MG/DL (8.5-10.1); CARBON DIOXIDE LEVEL 30 MMOL/L (20-31); CHLORIDE LEVEL 104 MMOL/L (98-107); CREATININE FOR GFR 0.64 MG/DL (0.55-1.30); GLOMERULAR FILTRATION RATE > 60.0 (>58); GLUCOSE, FASTING 92 MG/DL (60-100); POTASSIUM SERUM 4.4 MMOL/L (3.5-5.1); SODIUM LEVEL 137 MMOL/L (136-145)
[2023-07-27] MEDS: LR 1,000 ML IV SCH ×3 (11:23→14:51)
[2023-07-27] MEDS ORDERED: ACETAMINOPHEN *IV* 1,000 MG in IV 1 EA IV ONE (11:25)
[2023-07-27] MEDS ORDERED: HYDROmorphone HCL 2MG/ML 1ML VIAL As Ordered ONE (12:58)
[2023-07-27] MEDS ORDERED: ONDANSETRON 4MG 2ML VIAL As Ordered ONE (12:58)
[2023-07-27] MEDS ORDERED: KETOROLAC 60MG 2ML VIAL As Ordered ONE (12:58)
[2023-07-27] MEDS ORDERED: ACETAMINOPHEN 1000MG 100ML IV BAG As Ordered ONE (12:58)
[2023-07-27] MEDS ORDERED: fentaNYL 250 MCG/5 ML INJECTION As Ordered ONE (12:58)
[2023-07-27] MEDS ORDERED: propofoL 200 MG/20 ML VIAL As Ordered ONE (12:58)
[2023-07-27] MEDS ORDERED: LIDOCAINE 2% 100MG/5ML SDV (FOR ANES.) As Ordered ONE (12:58)
[2023-07-27] MEDS ORDERED: SUGAMMADEX SODIUM 500 MG/5 ML VIAL (BRIDION) As Ordered ONE (12:58)
[2023-07-27] MEDS ORDERED: ROCURONIUM BROMIDE 50MG/5ML VIAL As Ordered ONE (12:58)
[2023-07-27] MEDS ORDERED: dexmedeTOMIDine (4MCG/ML)200MCG/50ML BTL (PRECEDEX) As Ordered ONE (12:58)
[2023-07-27] MEDS ORDERED: MIDAZOLAM INJ 2MG/2ML VIAL As Ordered ONE (12:58)
[2023-07-27] MEDS ORDERED: METOCLOPRAMIDE INJ 10MG/2ML VIAL As Ordered ONE (12:58)
[2023-07-27] MEDS: ceFAZolin SOD 2 GM in IV 1 EA IV ONE (13:18)
[2023-07-27] MEDS ORDERED: LABETALOL 100MG/20ML VIAL As Ordered ONE (13:26)
[2023-07-27] MEDS: FLUORESCEIN 10% (100MG/ML) 5ML VIAL As Ordered ONE (13:58)
[2023-07-27] MEDS ORDERED: METOCLOPRAMIDE INJ 10MG/2ML VIAL IV PRN (14:30)
[2023-07-27] MEDS ORDERED: HYDROMORPHONE HCL 0.5 MG/ 0.5 ML SYRINGE IV PRN (14:30)
[2023-07-27] MEDS ORDERED: fentaNYL 100 MCG/2 ML INJECTION IV PRN (14:30)
[2023-07-27] MEDS ORDERED: ONDANSETRON 4MG 2ML VIAL IV PRN (14:30)
[2023-07-27] MEDS: oxyCODONE 5MG TAB PO PRN (14:52)
[2023-07-27 16:24] VITALS: BP 142/84; TEMP 98.1; O2SAT 99
== END 2023-07-27 16:52 | disposition home or self-care (01) ==
LOC: M SDC 09:49
PROVIDERS: ATTEND Obstetrics & Gynecology
DX: N80.03 Adenomyosis of the uterus (principal); N83.8 Other noninflammatory disorders of ovary, fallopian tube and broad ligament; N87.9 Dysplasia of cervix uteri, unspecified; N83.201 Unspecified ovarian cyst, right side; N88.8 Other specified noninflammatory disorders of cervix uteri; D64.9 Anemia, unspecified; J45.909 Unspecified asthma, uncomplicated; F17.210 Nicotine dependence, cigarettes, uncomplicated; Z79.899 Other long term (current) drug therapy; Z98.51 Tubal ligation status; Z98.84 Bariatric surgery status; J30.81 Allergic rhinitis due to animal (cat) (dog) hair and dander; Z91.018 Allergy to other foods; Z90.49 Acquired absence of other specified parts of digestive tract; R10.9 Unspecified abdominal pain; R32 Unspecified urinary incontinence
CPT/HCPCS: 36415; 58571; 58662; 80048; 81025; 85027; 86850; 86900; 86901; 88307; J0131; J0665; J0690; J1100; J1170; J1885; J1920; J2250; J2405; J2765; J3010; S2900